=== PATIENT | female | born 2000 | race African-American/Black ===

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

== ENCOUNTER 2021-02-01 10:54 | Emergency (ER) | payer OTHER ==
[~2021-02-01] VITALS: Ht 165.1 cm; Wt 90.1 kg
[2021-02-01 11:20] LABS: BILIRUBIN,URINE NEGATIVE (NEG); CLARITY,URINE CLEAR; COLOR,URINE YELLOW; NITRITE,URINE NEGATIVE (NEG); PROTEIN,URINE NEGATIVE (NEG-TRACE); UROBILINOGEN,URINE 0.2 mg/dL (0.2 mg/dL)
[2021-02-01] MEDS ORDERED: ACETAMINOPHEN 500 MG TABLET PO ONE (11:30)
[2021-02-01] MEDS ORDERED: KETOROLAC 15 MG/ML VIAL. IVP ONE (11:30)
--- NOTE | 2021-02-01 11:36 | PHYS DOC ---
Past Medical History Past Medical History: Asthma, Diabetes-Type II Past Surgical History: No Surgical History Smoking Status: Never Smoker Alcohol Use: None Drug Use: None General Adult EDM: Chief Complaint: ABDOMINAL PAIN HPI: HPI: Patient is a 21 year old female with history of anemia who presents with lower abdominal pain. Pain is sharp. Started yesterday and has been constant. Radiates slightly towards her groin. It is in the bilateral lower quadrants. Worse with movement. Has not tried any Tylenol or ibuprofen or other analgesics at home. No associated nausea/vomiting or diarrhea. Had a normal bowel movement yesterday. She has no previous history of abdominal surgeries. No history of similar pain. LMP was last week. She uses barrier contraception, and is sexually active. Denies any vaginal discharge, itching, or bleeding. She does endorse some dysuria. No fevers or chills. Review of Systems: Review of Systems: Constitutional: Denies fever or chills. [] Eyes: Denies change in visual acuity. [] HENT: Denies nasal congestion or sore throat. [] Respiratory: Denies cough or shortness of breath. [] Cardiovascular: Denies chest pain or edema. [] GI: + abdominal pain. Denies nausea, vomiting, bloody stools or diarrhea. [] : + dysuria. [] Musculoskeletal: Denies back pain or joint pain. [] Integument: Denies rash. [] Neurologic: Denies headache, focal weakness or sensory changes. [] Endocrine: Denies polyuria or polydipsia. [] Lymphatic: Denies swollen glands. [] Psychiatric: Denies depression or anxiety. [] Heart Score: C/O Chest Pain: N/A Risk Factors: Risk Factors: DM, Current or recent (<one month) smoker, HTN, HLP, family history of CAD, obesity. Risk Scores: Score 0 - 3: 2.5% MACE over next 6 weeks - Discharge Home Score 4 - 6: 20.3% MACE over next 6 weeks - Admit for Clinical Observation Score 7 - 10: 72.7% MACE over next 6 weeks - Early Invasive Strategies Allergies: Allergies: Allergies Coded Allergies Type Severity Reaction Last Updated Verified No Known Drug Allergies 04/03/16 No Physical Exam: PE: Constitutional: Well developed, well nourished, no acute distress, non-toxic appearance. [] HENT: Normocephalic, atraumatic, bilateral external ears normal, oropharynx moist, no oral exudates, nose normal. [] Eyes: PERRLA, EOMI, conjunctiva normal, no discharge. [] Neck: Normal range of motion, no tenderness, supple, no stridor. [] Cardiovascular:Heart rate regular rhythm, no murmur [] Lungs & Thorax: Bilateral breath sounds clear to auscultation [] Abdomen: Soft. Generalized tenderness to palpation in all 4 quadrants with some voluntary guarding. No rebound tenderness. [] Skin: Warm, dry, no erythema, no rash. [] Back: No tenderness, no CVA tenderness. [] Extremities: No tenderness, no cyanosis, no clubbing, ROM intact, no edema. [] Neurologic: Alert and oriented X 3, normal motor function, normal sensory funct ion, no focal deficits noted. [] Psychologic: Affect normal, judgement normal, mood normal. [] Current Patient Data: Labs: Laboratory Tests Test 02/01/21 11:10 POC Urine HCG, Qualitative Hcg negative (Negative) EKG: EKG: [] Radiology/Procedures: Radiology/Procedures: CT abdomen/pelvis [] Impression: [facility] [address] [place], [place] [id number] IMAGING REPORT Signed PATIENT: SHON PATEL DACCOUNT: [id number] : 2000 LOCATION: ER AGE: 21 SEX: F EXAM STATUS: REG ER ORD. PHYSICIAN: DEEDEE MADDOX MD REASON: lower abdominal pain PROCEDURE: CT ABD PELV W/ IV CONTRST ONLY Site ID: [id number] EXAMINATION: CT ABDOMEN+PELVIS W. Technique: Axial images with coronal and sagittal reconstructions are performed of abdomen and pelvis with intravenous contrast. 75 mL of Omnipaque -300 was administered intravenously. One or more of the following radiation dose reduction techniques was used: automated exposure control, adjustment of mA and/or KV according to patient size, and/or utilization of iterative reconstruction technique. HISTORY: 21 years Female abdominal pain COMPARISON: None. FINDINGS: The lung bases appear clear. The liver, gallbladder, the spleen, pancreas, and adrenals appear unremarkable. The kidneys have symmetric enhancement. There is no hydronephrosis. The abdominal aorta is normal in caliber. No para-aortic significant enlarged lymph nodes are seen. There is no bowel obstruction. The appendix appear normal. There is a small amount of pelvic free fluid seen adjacent to the adnexa. The ovaries are not well seen. The osseous structures appear grossly unremarkable. IMPRESSION: Small amount of pelvic fluid is seen near the adnexa. Correlation with the pelvic ultrasound is recommended. Electronically signed by: Radha Blanchard MD (02/01/2021 1:04 PM) [id number] DICTATED and SIGNED BY: RADHA BLANCHARD MD DATE: 02/01/21 [id number] [facility] [address] [place] [address] IMAGING REPORT Signed PATIENT: SHON PATEL DACCOUNT: [id number] : 2000 LOCATION: ER AGE: 21 SEX: F EXAM STATUS: REG ER ORD. PHYSICIAN: DEEDEE MADDOX MD REASON: bilateral pelvic pain PROCEDURE: PELVIS COMPLETE INDICATION: Reason: bilateral pelvic pain / Spl. Instructions: / History: COMPARISON: CT from same day TECHNIQUE: Grayscale and color ultrasound images uterus and adnexa. FINDINGS: Uterus: 66 x 48 x 39 mm. 8mm endometrial stripe. Right Ovary: 30 x 21 x 21 mm. Left Ovary: 43 x 43 x 28 mm. Vascular flow identified to bilateral ovaries. Small free fluid in the pelvis. Dominant follicle or small cyst left ovary measuring 23 x 19 x 9 mm. IMPRESSION: * Vascular flow seen to the ovaries. * Small free fluid. Electronically signed by: Teresa Mullins MD (02/01/2021 3:07 PM) [id number] DICTATED and SIGNED BY: TERESA MULLINS MD DATE: 02/01/21 [id number] Course & Med Decision Making: Course & Med Decision Making Pertinent Labs and Imaging studies reviewed. (See chart for details) Patient is a 21-year-old female who presents with 1 day of lower abdominal pain. Only associated symptom is dysuria. On arrival is afebrile and hemodynamically stable. Overall well-appearing, but does have generalized tenderness to palpation and voluntary guarding on examination. Patient uses barrier contraception and has not had any vaginal itching or dis charge to suggest an STI/PID/TOA, however will re-evaluate if work up is otherwise negative. She has a negative test excluding ectopic . Torsion is a possibility, but with b/l pain seem less likely. Appy and UTI also potential etiologies. Considered pelvic US versus CT, and given her generalized tenderness we will proceed with CT abdomen/pelvis initially. 1136 CT without acute process but does show pelvic fluid and recommends f/u US. Pelvic US ordered. 1408 Pelvic US with only some free fluid. Good flow to both ovaries noted, making ectopic less likely. Considered PID once again, patient was negative for GC/committee and trichomonas in the past couple of weeks at her PCPs office. She declines pelvic exam today. We will not treat empirically given this information. I have asked that she follow-up with her primary care physician to ensure that her symptoms improve. 1521 Lydia Disclaimer: Lydia Disclaimer: This electronic medical record was generated, in whole or in part, using a voice recognition dictation system. Departure Departure Disposition: HOME / SELF CARE / HOMELESS Condition: STABLE Referrals: UNKNOWN PCP NAME (PCP) Schedule follow-up appointment with your [facility] primary care doctor Additional Instructions: Your CT scan and ultrasound were reassuring. Your labs were also reassuring. There is no signs of urinary tract infection. Please follow-up with your primary care doctor to ensure that your symptoms improve. If they worsen or you develop new symptoms such as fever/chills, severe nausea/vomiting, or worsening pain please return to the emergency department for reevaluation. DEEDEE MADDOX MD Feb 01, 2021 11:36
[2021-02-01 11:39] LABS: BACTERIA,URINE FEW /HPF (0-FEW); RBC,URINE 0 /HPF (0-2)
[2021-02-01] MEDS ORDERED: IOHEXOL 300 MG/ML 100ML VIAL. IV ONE (11:45)
[2021-02-01] MEDS ORDERED: CONTRAST GIVEN. MC PRN (11:45)
[2021-02-01 11:47] LABS: BASO % 1 % (0-3); EOS # 0.2 x10^3/uL (0.0-0.7); EOS % 5 % (0-3); HEMATOCRIT 37.9 % (36.0-47.0); HEMOGLOBIN 12.2 g/dL (12.0-15.5); LYMPH # 1.5 x10^3/uL (1.0-4.8); LYMPH % 28 % (24-48); MEAN CORPUSCULAR HEMOGLOBIN 26 pg (25-35); MEAN CORPUSCULAR HGB CONC 32 g/dL (31-37); MEAN CORPUSCULAR VOLUME 81 fL (79-100); MONO # 0.4 x10^3/uL (0.0-1.1); MONO % 7 % (0-9); NEUT # 3.1 x10^3/uL (1.8-7.7); NEUT % 59 % (31-73); PLATELET COUNT 243 x10^3/uL (140-400); RED CELL DISTRIBUTION WIDTH 15.1 % (11.5-14.5); WHITE BLOOD COUNT 5.3 x10^3/uL (4.0-11.0)
[2021-02-01 11:56] LABS: CALCIUM 8.6 mg/dL (8.5-10.1); CREATININE 0.7 mg/dL (0.6-1.0); GFR 129.1; POTASSIUM 3.9 mmol/L (3.5-5.1)
[2021-02-01 12:02] LABS: ALBUMIN 3.3 g/dL (3.4-5.0); ALBUMIN/GLOBULIN RATIO 0.8 (1.0-1.7); TOTAL BILIRUBIN 0.1 mg/dL (0.2-1.0); TOTAL PROTEIN 7.4 g/dL (6.4-8.2)
[2021-02-01 12:47] VITALS: BP 118/62
--- NOTE | 2021-02-01 13:07 | RAD ---
Site ID: [id number] EXAMINATION: CT ABDOMEN+PELVIS W. Technique: Axial images with coronal and sagittal reconstructions are performed of abdomen and pelvis with intravenous contrast. 75 mL of Omnipaque -300 was administered intravenously. One or more of the following radiation dose reduction techniques was used: automated exposure control , adjustment of mA and/or KV according to patient size, and/or utilization of iterative reconstructio n technique. HISTORY: 21 years Female abdominal pain COMPARISON: None. FINDINGS: The lung bases appear clear. The liver, gallbladder, the spleen, pancreas, and adrenals appear unremarkable. The kidneys have symmetric enhancement. There is no hydronephrosis. The abdominal aorta is normal in caliber. No para-aortic significant enlarged lymph nodes are seen. There is no bowel obstruction. The appendix appear normal. There is a small amount of pelvic free flu id seen adjacent to the adnexa. The ovaries are not well seen. The osseous structures appear grossly unremarkable. IMPRESSION: Small amount of pelvic fluid is seen near the adnexa. Correlation with the pelvic ultrasound is recom mended. Electronically signed by: Manuel Blanchard MD (02/01/2021 1:04 PM) [id number]
--- NOTE | 2021-02-01 15:10 | RAD ---
INDICATION: Reason: bilateral pelvic pain / Spl. Instructions: / History: COMPARISON: CT from same day TECHNIQUE: Grayscale and color ultrasound images uterus and adnexa. FINDINGS: Uterus: 66 x 48 x 39 mm. 8mm endometrial stripe. Right Ovary: 30 x 21 x 21 mm. Left Ovary: 43 x 43 x 28 mm. Vascular flow identified to bilateral ovaries. Small free fluid in the pelvis. Dominant follicle or small cyst left ovary measuring 23 x 19 x 9 mm. IMPRESSION: * Vascular flow seen to the ovaries. * Small free fluid. Electronically signed by: Oleg Rordiguez MD (02/01/2021 3:07 PM) [id number]
== END 2021-02-01 15:38 | disposition home or self-care (01) ==
LOC: ER 10:54
DX: R10.30 Lower abdominal pain, unspecified (principal); R10.84 Generalized abdominal pain; R30.0 Dysuria; J45.909 Unspecified asthma, uncomplicated; E11.9 Type 2 diabetes mellitus without complications; Z86.2 Personal history of diseases of the blood and blood-forming organs and certain disorders involving the immune mechanism
CPT/HCPCS: 36415; 74177; 76856; 80053; 81001; 81025; 85025; 96374; 99285; J1885; Q9967

== ENCOUNTER 2021-09-15 18:22 | Emergency (ER) | payer OTHER ==
[~2021-09-15] VITALS: Ht 165.1 cm; Wt 97.0 kg
--- NOTE | 2021-09-15 18:45 | PHYS DOC ---
Past Medical History Past Medical History: Asthma, Diabetes-Type II Additional Past Medical Histor: NOT TAKING IRON YET Past Surgical History: No Surgical History Smoking Status: Never Smoker Alcohol Use: None Drug Use: None General Adult EDM: Chief Complaint: ABDOMINAL PAIN HPI: HPI: Patient is a 21 year old female presenting to the ED today complaining of 8 out of 10 bilateral lower abdominal pain with nausea, symptoms began a week ago. Patient states the pain is intermittent. Denies any diarrhea. Describes the pain as sharp. Denies anything specifically exacerbating or relieving the pain. Review of Systems: Review of Systems: Constitutional: Denies fever or chills. [] Eyes: Denies change in visual acuity. [] HENT: Denies nasal congestion or sore throat. [] Respiratory: Denies cough or shortness of breath. [] Cardiovascular: Denies chest pain or edema. [] GI: Reports lower abdominal pain with nausea, denies vomiting, bloody stools or diarrhea. [] : Denies dysuria. [] Musculoskeletal: Denies back pain or joint pain. [] Integument: Denies rash. [] Neurologic: Denies headache, focal weakness or sensory changes. [] Psychiatric: Denies depression or anxiety. [] Heart Score: C/O Chest Pain: N/A Risk Factors: Risk Factors: DM, Current or recent (<one month) smoker, HTN, HLP, family history of CAD, obesity. Risk Scores: Score 0 - 3: 2.5% MACE over next 6 weeks - Discharge Home Score 4 - 6: 20.3% MACE over next 6 weeks - Admit for Clinical Observation Score 7 - 10: 72.7% MACE over next 6 weeks - Early Invasive Strategies Current Medications: Current Medications Medications (Trade) Dose Ordered Sig/[facility] Start Time Stop Time Status Last Admin Dose Admin Acetaminophen (Tylenol) 1,000 mg 1X ONCE 09/15/21 18:45 09/15/21 18:46 UNV Morphine Sulfate (Morphine Sulfate) 4 mg PRN Q15MIN PRN 09/15/21 18:45 09/16/21 18:44 UNV Ondansetron HCl (Zofran) 4 mg 1X ONCE 09/15/21 18:45 09/15/21 18:46 UNV Sodium Chloride 1,710 ml @ 1,710 mls/hr Q1H 09/15/21 18:45 UNV Allergies: Allergies: Allergies Coded Allergies Type Severity Reaction Last Updated Verified No Known Drug Allergies 09/15/21 No Physical Exam: PE: Constitutional: Well developed, well nourished, no acute distress, non-toxic appearance. [] HENT: Normocephalic, atraumatic, bilateral external ears normal, oropharynx moist, no oral exudates, nose normal. [] Eyes: PERRLA, EOMI, conjunctiva normal, no discharge. [] Neck: Normal range of motion, no tenderness, supple, no stridor. [] Cardiovascular:Heart rate regular rhythm, no murmur [] Lungs & Thorax: Bilateral breath sounds clear to auscultation [] Abdomen: Bowel sounds normal, soft, no tenderness, no masses, no pulsatile masses. [] Skin: Warm, dry, no erythema, no rash. [] Back: No tenderness, no CVA tenderness. [] Extremities: No tenderness, no cyanosis, no clubbing, ROM intact, no edema. [] Neurologic: Alert and oriented X 3, normal motor function, normal sensory function, no focal deficits noted. [] Psychologic: Affect normal, judgement normal, mood normal. [] Current Patient Data: Vital Signs: Vital Signs Date Time Temp Pulse Resp B/P (MAP) Pulse Ox O2 Delivery O2 Flow Rate FiO2 09/15/21 18:25 100.4 92 18 138/67 (90) 100 Room Air 100.4 EKG: EKG: [] Radiology/Procedures: Radiology/Procedures: []PROCEDURE: CHEST AP ONLY XR CHEST 1V History: Reason: fever / Spl. Instructions: / History: Comparison: None. Findings: No consolidation or pleural effusion. Normal heart size. No pneumothorax. Impression: 1. No acute cardiopulmonary process. Electronically signed by: Gisele Mcadams DO (09/15/2021 7:55 PM) [facility] DICTATED and SIGNED BY: GISELE MCADAMS DO DATE: 09/15/211953 PROCEDURE: CT ABD PELV W/ IV CONTRST ONLY CT ABDOMEN+PELVIS W History: Reason: abd pain, OMNI 300 75 ML IV / Spl. Instructions: / History: Technique: After the administration of intravenous contrast, CT imaging was performed of the abdomen and pelvis. Multiplanar images are reviewed. Exposure: One or more of the following individualized dose reduction techniques were utilized for this examination: 1. Automated exposure control 2. Adjustment of the mA and/or kV according to patient size 3. Use of iterative reconstruction technique. Comparison: February 01, 2021 Findings: Lower chest: No consolidation or pleural effusion. Abdomen and pelvis: The liver, spleen, adrenal glands, and pancreas are unremarkable. Contracted gallbladder. No renal calculus. No hydronephrosis. Decompressed urinary bladder. Normal appendix. No evidence of bowel obstruction. Several small mesenteric lymph nodes. No pathologic lymphadenopathy. Minimal pelvic free fluid, likely physiologic. Bones: No pathologic osseous lesions. Impression: 1. No acute abdominal or pelvic pathology. Electronically signed by: Gisele Mcadams DO (09/15/2021 8:08 PM) [facility] DICTATED and SIGNED BY: GISELE MCADAMS DO DATE: 09/15/212003 Course & Med Decision Making: Course & Med Decision Making Pertinent Labs and Imaging studies reviewed. (See chart for details) This is a 21-year-old female patient presented to the ED today with lower abdominal pain with nausea, symptoms began a week ago. Arrives in the ED with a temperature of 100.4, heart rate 92, respiration 19 on room air, blood pressure 138/67, O2 sats 100%. Sepsis work-up was initiated including Covid test and influenza test. Given Tylenol in the ED CBC with a normal WBC, hemoglobin 10.8 with hematocrit of 34.3, history of anemia. CMP with no acute findings, negative urine hCG, UA negative for infection. Chest x-ray is negative for any acute findings, CT of the abdomen and pelvis are negative for any acute findings. Negative influenza a and B rapid test, negative rapid Covid test. Patient feels better after IV fluids, zofran and Tylenol. Discharge home. Follow-up with PCP in 1 week. Provided return precautions. Encouraged to take Tylenol/Motrin for pain or fever. F/u with PCP next week Lydia Disclaimer: Lydia Disclaimer: This electronic medical record was generated, in whole or in part, using a voice recognition dictation system. Departure Departure Impression: Primary Impression: Fever Qualified Codes: R50.9 - Fever, unspecified Additional Impressions: Abdominal pain Qualified Codes: R10.32 - Left lower quadrant pain Nausea Disposition: HOME / SELF CARE / HOMELESS Condition: STABLE Referrals: NON,STAFF (PCP) Follow-up with your primary care doctor next week Patient Instructions: Abdominal Pain (Nonspecific), Fever, Adult Additional Instructions: You were evaluated in the emergency room for abdominal pain with nausea, you had an incidental finding of a fever. Take Tylenol or Motrin for fever or pain. You had a CT of the abdomen and pelvis and chest xrays which were negative for any acute findings. You had lab work done which was negative for any acute findings. Your urine had no infection. Your rapid Covid test and rapid influenza a and B test were negative. Please follow-up with your primary care doctor in 1 week Scripts Ondansetron (ONDANSETRON ODT) 4 Mg Tab.rapdis 1 TAB PO PRN Q6-8HRS, #16 TAB Prov: EVA GOLDMAN APRN 09/15/21 EVA GOLDMAN APRN Sep 15, 2021 18:45
[2021-09-15 18:57] LABS: BASO % 1 % (0-3); EOS # 0.2 x10^3/uL (0.0-0.7); EOS % 4 % (0-3); HEMATOCRIT 34.3 % (36.0-47.0); HEMOGLOBIN 10.8 g/dL (12.0-15.5); LYMPH # 1.9 x10^3/uL (1.0-4.8); LYMPH % 34 % (24-48); MEAN CORPUSCULAR HEMOGLOBIN 25 pg (25-35); MEAN CORPUSCULAR HGB CONC 32 g/dL (31-37); MEAN CORPUSCULAR VOLUME 80 fL (79-100); MONO # 0.5 x10^3/uL (0.0-1.1); MONO % 9 % (0-9); NEUT # 2.9 x10^3/uL (1.8-7.7); NEUT % 52 % (31-73); PLATELET COUNT 283 x10^3/uL (140-400); RED BLOOD COUNT 4.32 x10^6/uL (3.50-5.40); RED CELL DISTRIBUTION WIDTH 15.2 % (11.5-14.5); WHITE BLOOD COUNT 5.5 x10^3/uL (4.0-11.0)
[2021-09-15] MEDS: IV NORMAL SALINE 1000ML BAG 1,000 ML IV SCH (19:00)
[2021-09-15] MEDS: MORPHINE SULFATE 4 MG/ML INJ. IV/SQ PRN (19:02)
[2021-09-15] MEDS: ONDANSETRON PF 4 MG/2 ML VIAL. IVP ONE (19:02)
[2021-09-15] MEDS: ACETAMINOPHEN 500 MG TABLET PO ONE (19:02)
[2021-09-15 19:04] LABS: CALCIUM 8.9 mg/dL (8.5-10.1); CREATININE 0.7 mg/dL (0.6-1.0); GFR 129.1; POTASSIUM 3.7 mmol/L (3.5-5.1)
[2021-09-15 19:10] LABS: ALBUMIN 3.5 g/dL (3.4-5.0); ALBUMIN/GLOBULIN RATIO 0.8 (1.0-1.7); TOTAL BILIRUBIN 0.2 mg/dL (0.2-1.0); TOTAL PROTEIN 8.1 g/dL (6.4-8.2)
[2021-09-15 19:11] LABS: BILIRUBIN,URINE NEGATIVE (NEG); CLARITY,URINE CLEAR; COLOR,URINE YELLOW; NITRITE,URINE NEGATIVE (NEG); PROTEIN,URINE NEGATIVE (NEG-TRACE); UROBILINOGEN,URINE 0.2 mg/dL (0.2 mg/dL)
[2021-09-15 19:12] LABS: BACTERIA,URINE FEW /HPF (0-FEW); RBC,URINE 0 /HPF (0-2); WBC,URINE RARE /HPF (0-4)
[2021-09-15 19:29] LABS: INFLUENZA A PATIENT NEGATIVE (NEGATIVE); INFLUENZA B PATIENT NEGATIVE (NEGATIVE)
[2021-09-15] MEDS ORDERED: CONTRAST GIVEN. MC PRN (19:30)
[2021-09-15] MEDS: IOHEXOL 300 MG/ML 100ML VIAL. IV ONE (19:39)
--- NOTE | 2021-09-15 19:57 | RAD ---
XR CHEST 1V History: Reason: fever / Spl. Instructions: / History: Comparison: None. Findings: No consolidation or pleural effusion. Normal heart size. No pneumothorax. Impression: 1. No acute cardiopulmonary process. Electronically signed by: Vivek Otoole DO (09/15/2021 7:55 PM) [facility]
--- NOTE | 2021-09-15 20:10 | RAD ---
CT ABDOMEN+PELVIS W History: Reason: abd pain, OMNI 300 75 ML IV / Spl. Instructions: / History: Technique: After the administration of intravenous contrast, CT imaging was performed of the abdomen and pelvis. Multiplanar images are reviewed. Exposure: One or more of the following individualized dose reduction techniques were utilized for thi s examination: 1. Automated exposure control 2. Adjustment of the mA and/or kV according to patient size 3. Use of iterative reconstruction technique. Comparison: February 01, 2021 Findings: Lower chest: No consolidation or pleural effusion. Abdomen and pelvis: The liver, spleen, adrenal glands, and pancreas are unremarkable. Contracted gall bladder. No renal calculus. No hydronephrosis. Decompressed urinary bladder. Normal appendix. No evidence of bowel obstruction. Several small mesenteric lymph nodes. No pathologi c lymphadenopathy. Minimal pelvic free fluid, likely physiologic. Bones: No pathologic osseous lesions. Impression: 1. No acute abdominal or pelvic pathology. Electronically signed by: Vivek Otoole DO (09/15/2021 8:08 PM) [facility]
[2021-09-15 20:30] VITALS: BP 114/65
[2021-09-15] MEDS ORDERED: ONDA4TAB12 PO (20:34)
== END 2021-09-15 20:39 | disposition home or self-care (01) ==
LOC: ER 18:22
DX: R10.31 Right lower quadrant pain (principal); R10.32 Left lower quadrant pain; Z20.822 Contact with and (suspected) exposure to COVID-19; E11.9 Type 2 diabetes mellitus without complications; J45.909 Unspecified asthma, uncomplicated; R11.0 Nausea; R50.9 Fever, unspecified
CPT/HCPCS: 36415; 71045; 74177; 80053; 81001; 81025; 83690; 84145; 85025; 87040; 87426; 87804; 96361; 96374; 99285; C9803; J2405; J7030; Q9967; U0003